=== PATIENT | female | born 1990 | race Two or more races ===

== ENCOUNTER 2021-07-07 01:21 | Emergency (ER) | payer BC, OTHER ==
[~2021-07-07] VITALS: Ht 154.9 cm; Wt 73.0 kg
[2021-07-07] MEDS ORDERED: IBUPROFEN 600MG TABLET PO STA (04:08)
[2021-07-07 04:45] LABS: BASOPHILS % 0.3 % (0.0-2.0); EOSINOPHILS % 0.7 % (0.0-5.0); HEMATOCRIT. 35.8 % (36.0-48.0); HEMOGLOBIN. 11.7 g/dL (12.0-16.0); LYMPHOCYTES % 19.9 % (20.0-50.0); MEAN CORPUSCULAR HEMOGLOBIN 25.1 pg (28.0-32.0); MEAN CORPUSCULAR VOLUME 77.2 fL (81.0-99.0); MEAN PLATELET VOLUME 7.9 fl (7.4-10.4); MONOCYTES % 8.6 % (2.0-8.0); NEUTROPHILS % 70.5 % (40.0-76.0); PLATELET 355 x1000/uL (130-400); RED BLOOD CELL COUNT 4.64 mill/uL (4.2-5.4); RED CELL DISTRIBUTION WIDTH 16.2 % (11.6-14.6)
[2021-07-07 04:55] LABS: CHLORIDE 107 mEq/L (98-107)
[2021-07-07 05:00] VITALS: BP 121/74
[2021-07-07] MEDS ORDERED: IBUP-2029 MT (05:23)
== END 2021-07-07 05:38 | disposition home or self-care (01) ==
LOC: ER 01:21
DX: R07.89 Other chest pain (principal); I10 Essential (primary) hypertension
CPT/HCPCS: 36415; 71045; 80053; 81025; 84484; 85025; 93005; 99285